=== PATIENT | male | born 1940 | race Caucasian/White ===

== ENCOUNTER → 2023-11-14 13:17 | Outpatient (REF) | payer MEDICARE, OTHER, SELFPAY ==
[2023-11-14 16:06] LABS: Blood Urea Nitrogen 24 mg/dl (9-20); Calcium 9.2 mg/dl (8.4-10.2); Carbon Dioxide 25 mmol/L (22-30); Chloride 103 mmol/L (98-107); Glucose 198 mg/dl (70-99); Potassium 4.9 mmol/L (3.5-5.1); Sodium 134 mmol/L (135-145); eGFR 55.19
== END ==
LOC: HWLAB 13:17
PROVIDERS: ATTENDING PHYSICIAN Nurse Practitioner Adult Health
DX: N18.31 Chronic kidney disease, stage 3a (principal)
CPT/HCPCS: 36415; 80048

== ENCOUNTER → 2024-05-22 10:33 | Outpatient (REF) | payer MEDICARE, OTHER, SELFPAY ==
[2024-05-22 12:33] LABS: % Basophils 0.7 % (0-2); % Eosinophils 2.4 % (0-6); % Immature Granulocytes 0.3 % (0-0.5); % Lymphocytes 29.2 % (20.5-51.1); % Monocytes 5.8 % (1.7-9.3); % Neutrophils 61.6 % (42.2-75.2); Absolute Basophils 0.1 10^3/uL (0-0.2); Absolute Eosinophils 0.2 10^3/uL (0-0.7); Absolute Lymphocytes 2.8 10^3/uL (1.2-3.4); Absolute Monocytes 0.6 10^3/uL (0.1-0.6); Hematocrit 41.7 % (39.0-52.0); Hemoglobin 14.4 g/dL (13.0-18.0); Mean Corp Hgb Conc. 34.5 g/dL (33.0-37.0); Mean Corpuscular Volume 95.6 fL (80.0-94.0); Mean Platelet Volume 10.1 fL (7.4-10.4); Nucleated Red Blood Cells % 0 % (-); Platelet Count 211 10^3/uL (130-400); Red Blood Cell Count 4.36 10^6/uL (4.70-6.10); Red Cell Dist. Width 13.2 % (11.5-14.5); White Blood Cell Count 9.7 10^3/uL (4.8-10.8)
[2024-05-22 13:11] LABS: ALT (SGPT) 25 U/L (0-50); AST (SGOT) 29 U/L (17-59); Albumin 4.6 g/dl (3.5-5.0); Alkaline Phosphatase 91 U/L (38-126); Blood Urea Nitrogen 25 mg/dl (9-20); Calcium 9.9 mg/dl (8.4-10.2); Carbon Dioxide 21 mmol/L (22-30); Chloride 102 mmol/L (98-107); Glucose 124 mg/dl (70-99); HDL Cholesterol 41 mg/dl; LDL Cholesterol, Calculated 81 mg/dl; Potassium 5.2 mmol/L (3.5-5.1); Sodium 137 mmol/L (135-145); Total Bilirubin 1.1 mg/dl (0.2-1.3); Total Cholesterol 149 mg/dl (50-199); Total Protein 7.4 g/dl (6.3-8.2); Triglyceride 135 mg/dl (10-149); Very Low Density Lipoprotein 27 mg/dl (0-30); eGFR 50.18
[2024-05-22 14:43] LABS: Glycohemoglobin (HgbA1c) 6.3 % (4.0-5.6)
[2024-05-22 15:16] LABS: Microalbumin, Random Urine 14.7 mg/dl (0.6-1.7)
== END ==
LOC: HWLAB 10:33
PROVIDERS: ATTENDING PHYSICIAN Internal Medicine Gastroenterology; FAMILY PHYSICIAN Nurse Practitioner Adult Health
DX: R80.9 Proteinuria, unspecified (principal); E11.9 Type 2 diabetes mellitus without complications; E78.00 Pure hypercholesterolemia, unspecified; T86.41 Liver transplant rejection; Z12.5 Encounter for screening for malignant neoplasm of prostate
CPT/HCPCS: 36415; 80053; 80061; 82043; 82570; 83036; 85025; G0103

== ENCOUNTER 2024-10-17 11:34 | Emergency (ER) | payer MEDICARE, OTHER, SELFPAY ==
[2024-10-17 11:39] VITALS: BP 183/88
[2024-10-17 12:01] LABS: % Basophils 0.5 % (0-2); % Eosinophils 1.8 % (0-6); % Immature Granulocytes 1.6 % (0-0.5); % Lymphocytes 33.5 % (20.5-51.1); % Monocytes 6.2 % (1.7-9.3); % Neutrophils 56.4 % (42.2-75.2); Absolute Eosinophils 0.1 10^3/uL (0-0.7); Absolute Immature Granulocytes 0.1 10^3/uL (0-0.05); Absolute Lymphocytes 1.8 10^3/uL (1.2-3.4); Absolute Monocytes 0.3 10^3/uL (0.1-0.6); Absolute Neutrophils 3.1 10^3/uL (1.4-6.5); Hematocrit 42.2 % (39.0-52.0); Hemoglobin 14.2 g/dL (13.0-18.0); Mean Corp Hgb Conc. 33.6 g/dL (33.0-37.0); Mean Corpuscular Hgb 32.6 pg (27.0-31.0); Mean Corpuscular Volume 96.8 fL (80.0-94.0); Mean Platelet Volume 9.5 fL (7.4-10.4); Nucleated Red Blood Cells % 0 % (-); Platelet Count 336 10^3/uL (130-400); Red Blood Cell Count 4.36 10^6/uL (4.70-6.10); Red Cell Dist. Width 13.2 % (11.5-14.5); White Blood Cell Count 5.5 10^3/uL (4.8-10.8)
[2024-10-17 12:12] LABS: ALT (SGPT) 17 U/L (0-50); AST (SGOT) 27 U/L (17-59); Albumin 4.4 g/dl (3.5-5.0); Alkaline Phosphatase 88 U/L (38-126); Blood Urea Nitrogen 22 mg/dl (9-20); Calcium 9.4 mg/dl (8.4-10.2); Carbon Dioxide 24 mmol/L (22-30); Chloride 102 mmol/L (98-107); Glucose 177 mg/dl (70-99); Potassium 5.1 mmol/L (3.5-5.1); Sodium 138 mmol/L (135-145); Total Bilirubin 1.1 mg/dl (0.2-1.3); Total Protein 7.6 g/dl (6.3-8.2); eGFR 50.18
[2024-10-17 12:41] LABS: Urine Albumin 2+ (Neg - Trace); Urine Bilirubin Negative (Negative); Urine Character Clear (Clear); Urine Color Yellow; Urine Glucose Negative (Negative); Urine Ketone Negative (Negative); Urine Leukocyte Negative (Negative); Urine Nitrite Negative (Negative); Urine Occult Blood Negative (Negative); Urine Urobilinogen Negative (Neg - 1+)
--- NOTE | 2024-10-17 13:37 | ED.GENMED ---
ED Provider Triage
<Jennifer Lowry PA-C - Last Filed: 10/17/24 13:39>
-
Patient seen by provider in Triage?: Seen in Triage
Attestation: A medical screening examination has been initiated by a qualified medical provider. Based on the assessment performed at this time, it has been determined that an emergent medical condition may exist and the patient has been informed
that further medical evaluation and possible additional diagnostic testing may be needed.
HPI: 84yoM here with R flank pain and urinary frequency x 1 week. Feels like he has to urinate constantly and is having dysuria. Believes he has a kidney stones, history of the same. No fevers, vomiting, testicular pain. Hx of liver transplant 20
years ago.
GENERAL: Alert , in no apparent distress
EYE: No visual abnormalities.
NECK: Trachea midline
ENT: No visible abnormalities.
LUNGS: No acute respiratory distress
NEUROLOGICAL: Alert and oriented
SKIN: Skin intact. No visible changes.
MUSCULOSKELETAL: Moving extremities normally
PSYCH: Normal and appropriate interaction.
This is a medical evaluation conducted in person to initiate diagnostic evaluation and provide initial therapeutics. Please see further documentation by the treating clinician.
CBC, CMP, UA ordered initially. No hematuria or signs of infection on urine dip, microscopic analysis pending. Will order bladder scan and CT abd/pelvis without contrast.
History of Present Illness
<Jennifer Lowry PA-C - Last Filed: 10/17/24 13:39>
General
Chief Complaint: Flank Pain
Time Seen by Provider: 10/17/24 13:46
<Juan A Mahajan PA-C - Last Filed: 10/17/24 16:05>
General
Source: patient
Exam Limitations: none
History of Present Illness
History of Present Illness:
84-year-old male presents for evaluation of difficulty urinating and lower abdominal discomfort. He has a history of kidney stones and this discomfort reminds him of his kidney stones in the past. No fevers or vomiting. He denies any blood in the
urine. He states over the past week he has been having a weak stream with urination. No other complaints at this time
Past History
<Jennifer Lowry PA-C - Last Filed: 10/17/24 13:39>
Past History
ED Past Medical History: CAD, HTN, Hypercholesterolemia, NIDDM, [place] and Other (vascular stents, BPH, diabetes mellitus, kidney stones, liver transplant, hepatitis)
ED Past Surgical History: Appendectomy and Other (Liver transplant)
Social History
Tobacco: Smoker
Alcohol: Occasional
Personal:
Living: with family
Phy Exam
<Juan A Mahajan PA-C - Last Filed: 10/17/24 16:05>
Physical Exam
Physical Exam:
General: Well-appearing male no acute respiratory distress
HEENT: Normocephalic atraumatic
Heart: Regular rate and rhythm no murmurs
Lungs: Clear no wheeze or rales.
Abd: soft, tender to suprapubic area
Ext: no cyanosis or edema
Course
<Jennifer Lowry PA-C - Last Filed: 10/17/24 13:39>
Orders/Labs/Results
Orders:
Orders
10/17/24 11:48
Complete Blood Count/With Diff Urgent
Comprehensive Metabolic Panel Urgent
Urinalysis Reflex To Culture Urgent
Date Specimen was Collected: 10/17/24
Time Specimen was Collected: 11:42
Urine Microscopic Reflex Cult Urgent
10/17/24 13:34
CT Abd/pel Without Iv Or Oral Urgent
Comment:
Reason For Exam: R flank pain, urinary frequency
10/17/24 13:37
Bladder Scan- Treatment ONCE
10/17/24 14:24
Lidocaine 2% [Lidocaine Uro-Jet 2%] 1 syringe .ROUTE .STK-MED ONE
Abnormal Lab Results
10/17/24
11:48
RBC 4.36 L 10^6/uL
(4.70-6.10)
MCV 96.8 H fL
(80.0-94.0)
MCH 32.6 H pg
(27.0-31.0)
Abs Immat Gran (auto) 0.1 H 10^3/uL
(0-0.05)
Immature Gran % 1.6 H %
(0-0.5)
BUN 22 H mg/dl
(9-20)
Creatinine 1.4 H mg/dL
(0.7-1.3)
Glucose 177 H mg/dl
(70-99)
Urine Albumin (Reflex) 2+ A
(Neg - Trace)
10/17/24 11:48
10/17/24 11:48
Vital Signs
Initial and Last Documented VS:
Initial Vital Signs
Temp Pulse Resp BP Pulse Ox
97.6 F 62 16 183/88 99
10/17/24 11:39 10/17/24 11:39 10/17/24 11:39 10/17/24 11:39 10/17/24 11:39
Last Documented Vital Signs
Temp Pulse Resp BP Pulse Ox
97.6 F 62 16 172/87 99
10/17/24 11:39 10/17/24 14:11 10/17/24 14:11 10/17/24 14:09 10/17/24 14:30
Afshinlt;Juan A Mahajan PA-C - Last Filed: 10/17/24 16:05>
Orders/Labs/Results
Orders:
Orders
10/17/24 11:48
Complete Blood Count/With Diff Urgent
Comprehensive Metabolic Panel Urgent
Urinalysis Reflex To Culture Urgent
Date Specimen was Collected: 10/17/24
Time Specimen was Collected: 11:42
Urine Microscopic Reflex Cult Urgent
10/17/24 13:34
CT Abd/pel Without Iv Or Oral Urgent
Comment:
Reason For Exam: R flank pain, urinary frequency
10/17/24 13:37
Bladder Scan- Treatment ONCE
10/17/24 14:24
Lidocaine 2% [Lidocaine Uro-Jet 2%] 1 syringe .ROUTE .STK-MED ONE
Abnormal Lab Results
10/17/24
11:48
RBC 4.36 L 10^6/uL
(4.70-6.10)
MCV 96.8 H fL
(80.0-94.0)
MCH 32.6 H pg
(27.0-31.0)
Abs Immat Gran (auto) 0.1 H 10^3/uL
(0-0.05)
Immature Gran % 1.6 H %
(0-0.5)
BUN 22 H mg/dl
(9-20)
Creatinine 1.4 H mg/dL
(0.7-1.3)
Glucose 177 H mg/dl
(70-99)
Urine Albumin (Reflex) 2+ A
(Neg - Trace)
10/17/24 11:48
10/17/24 11:48
Vital Signs
Initial and Last Documented VS:
Initial Vital Signs
Temp Pulse Resp BP Pulse Ox
97.6 F 62 16 183/88 99
10/17/24 11:39 10/17/24 11:39 10/17/24 11:39 10/17/24 11:39 10/17/24 11:39
Last Documented Vital Signs
Temp Pulse Resp BP Pulse Ox
97.6 F 62 16 172/87 99
10/17/24 11:39 10/17/24 14:11 10/17/24 14:11 10/17/24 14:09 10/17/24 14:30
<Juan A Mahaajn PA-C - Last Filed: 10/17/24 16:05>
MDM/Problems Addressed
Differential Diagnosis Includes:
Suprapubic discomfort flank discomfort and trouble urinating. Question UTI versus kidney stone versus urinary retention
Bladder scan at bedside shows 329 mL of urine in the bladder
CT demonstrates 6 mm stone within the dependent portion of the bladder but no active ureteral stone. This may suggest recently passed stone. There is an enlarged prostate noted on CT. Urinalysis negative for infection
Had discussion with patient regarding his urinary retention and having over 300 mL of urine in the bladder. Discussed in recommended catheter placement for urinary retention however he wishes not to go home with catheter. He declined this Rust
catheter but was okay for straight catheter. Straight cath was performed bladder was decompressed. He will be advised to follow-up with urology or return here if symptoms persist
<Juan A Mahajan PA-C - Last Filed: 10/17/24 16:05>
*Critical Care Note
Total Time (30-74mins, 75-104mins- exclusive of procedures): Not Applicable
ED Attending Note
<Jennifer Lowry PA-C - Last Filed: 10/17/24 13:39>
-
Portions of this chart may have been created with voice recognition software.� Occasional wrong word or��sound alike� substitutions may have occurred due to the inherent limitations of voice recognition software.
Discharge Plan
Departure
Patient Disposition: Home (Routine Discharge)
Date of Disposition: 10/17/24
Time of Disposition: 16:03
Patient with high blood pressure during this ER visit?: No
Discharge Problem:
Acute urinary retention
Instructions: Kidney Stones (DC)
Prescriptions:
No Action
atorvastatin 40 MG tablet
20 mg PO NOON
carvedilol [Coreg] 25 MG tablet
25 mg PO BID
aspirin 325 MG tablet
325 mg PO DAILY
lisinopril 2.5 MG tablet
2.5 mg PO DAILY
omega-3 fatty acids-fish oil [Fish Oil] 1,000 MG capsule
2 cap PO BID
metformin 500 MG tablet
500 mg PO BID
tacrolimus 1 MG capsule
1 mg PO BID
oxycodone 5 MG tablet
5 mg PO Q4HPRN PRN (Reason: flank pain) Qty: 12 0RF
ondansetron 4 MG tablet,disintegrating
4 mg PO TIDPRN PRN (Reason: nausea/vomiting) Qty: 9 0RF
Referrals:
Pool Chaidez MD [Active] -
Michelle Ojeda CRNP [Family Provider] -
Activity Restrictions/Additional Instructions:
Please return here for worsening symptoms. Follow-up with urology otherwise
Interventions
Interventions:
*Risk Screen - Suicide Last Done: 10/17/24 11:39
*Neglect/Abuse Screening Last Done: 10/17/24 11:39
ED- Fall Risk Assessment Last Done: 10/17/24 14:48
*ED COVID-19 Vaccine History Last Done: 10/17/24 11:39
OQ-Rpanzp-Udxrutnoia Assessment Last Done: 10/17/24 14:13
ED-Male Genitourinary Assessment Last Done: 10/17/24 14:13
Discharge Date and Time
Print Language: BAHRAINI
[2024-10-17 13:40] LABS: Urine Squamous Cell 0-2 /LPF (Few)
[2024-10-17 13:41] LABS: Urine Amorphous Seen; Urine Hyaline Cast 0-2 /LPF (0-2); Urine Red Blood Cell 0-2 /HPF (0-2); Urine White Cell 0-2 /HPF (0-5)
[2024-10-17 14:09] VITALS: BP 172/87
[2024-10-17 14:11] VITALS: BMI 24.8
--- NOTE | 2024-10-17 14:22 | EDRN ---
late entry--- post void bladder scan done in triage area for over 350cc
== END 2024-10-17 16:14 | disposition home or self-care (01) ==
LOC: EMR 11:34
PROVIDERS: EMERGENCY PHYSICIAN Emergency Medicine; FAMILY PHYSICIAN Nurse Practitioner Adult Health
DX: N40.1 Benign prostatic hyperplasia with lower urinary tract symptoms (principal); R33.8 Other retention of urine; I25.10 Atherosclerotic heart disease of native coronary artery without angina pectoris; I10 Essential (primary) hypertension; E78.00 Pure hypercholesterolemia, unspecified; E11.9 Type 2 diabetes mellitus without complications; F17.200 Nicotine dependence, unspecified, uncomplicated; Z87.442 Personal history of urinary calculi; Z90.49 Acquired absence of other specified parts of digestive tract; Z94.4 Liver transplant status
CPT/HCPCS: 99284; 74176; 80053; 81003; 81015; 85025

== ENCOUNTER 2024-10-18 08:25 | Emergency (ER) | payer MEDICARE, OTHER, SELFPAY ==
--- NOTE | 2024-10-18 08:47 | ED.GENMED ---
ED Provider Triage
-
Patient seen by provider in Triage?: Seen in Triage
Attestation: A medical screening examination has been initiated by a qualified medical provider. Based on the assessment performed at this time, it has been determined that an emergent medical condition may exist and the patient has been informed
that further medical evaluation and possible additional diagnostic testing may be needed.
HPI:
GENERAL: Alert , in no apparent distress
EYE: No visual abnormalities.
NECK: Trachea midline
ENT: No visible abnormalities.
LUNGS: No acute respiratory distress
NEUROLOGICAL: Alert and oriented
SKIN: Skin intact. No visible changes.
MUSCULOSKELETAL: Moving extremities normally
PSYCH: Normal and appropriate interaction.
This is a medical evaluation conducted in person to initiate diagnostic evaluation and provide initial therapeutics. Please see further documentation by the treating clinician.
History of Present Illness
General
Chief Complaint: Urinary Symptoms
Time Seen by Provider: 10/18/24 08:50
History of Present Illness
History of Present Illness:
84-year-old male presents the emergency department due to continued urinary retention. He was seen yesterday for this and was recommended to have a Rust catheter placed however he declined. Has not been able to void substantially since that time.
No fevers or chills
Past History
Past History
ED Past Medical History: CAD, HTN, Hypercholesterolemia, NIDDM, [place] and Other (vascular stents, BPH, diabetes mellitus, kidney stones, liver transplant, hepatitis)
ED Past Surgical History: Appendectomy and Other (Liver transplant)
Social History
Tobacco: Smoker
Alcohol: Occasional
Personal:
Living: with family
Review of Systems
Review of Systems
Allergies reviewed?: Yes
All Other Systems: ROS reviewed and negative except as documented in HPI and ROS
Phy Exam
Physical Exam
Physical Exam:
GEN: Well appearing, NAD, WDWN
HEENT: Oral mucosa moist, no scleral icterus
Cardiac: Regular rate
Lung: No respiratory distress, no tachypnea
MSK: No gross deformity or injuries
Skin: Good color, no pallor or jaundice, no rashes
Neuro: AO x3, moves all extremities freely
Psych: Calm, cooperative
Course
Orders/Labs/Results
Orders:
Orders
10/18/24 08:51
Rust Placement- Treatment ONCE
Reason for insertion: Acute Retention
10/18/24 09:21
Urine Culture Urgent
JOANA Source: Urine
Specimen Description:
Obtained by: Indwelling Catheter
Date Specimen was Collected: 10/18/24
Time Specimen was Collected: 09:18
Vital Signs
Initial and Last Documented VS:
Initial Vital Signs
Temp Pulse Resp BP Pulse Ox
98.0 F 67 16 131/73 98
10/18/24 08:51 10/18/24 08:51 10/18/24 08:51 10/18/24 08:51 10/18/24 08:51
Last Documented Vital Signs
Temp Pulse Resp BP Pulse Ox
98.0 F 67 16 131/73 98
10/18/24 08:51 10/18/24 08:51 10/18/24 08:51 10/18/24 08:51 10/18/24 08:51
MDM/Problems Addressed
MDM/Problems Addressed:
Rust placed, patient with improved symptoms. Will start him on Flomax and also empiric antibiotics particular given history of liver transplant on immunosuppressive's
*Critical Care Note
Total Time (30-74mins, 75-104mins- exclusive of procedures): Not Applicable
ED Attending Note
-
Portions of this chart may have been created with voice recognition software.� Occasional wrong word or��sound alike� substitutions may have occurred due to the inherent limitations of voice recognition software.
Discharge Plan
Departure
Patient Disposition: Home (Routine Discharge)
Date of Disposition: 10/18/24
Time of Disposition: 09:09
Patient with high blood pressure during this ER visit?: No
Discharge Problem:
Acute urinary retention
Instructions: Urinary retention
Prescriptions:
New
cefdinir 300 mg capsule
300 mg PO BID Qty: 14 0RF
tamsulosin [Flomax] 0.4 mg capsule
0.4 mg PO HS Qty: 14 0RF
No Action
atorvastatin 40 MG tablet
20 mg PO NOON
carvedilol [Coreg] 25 MG tablet
25 mg PO BID
aspirin 325 MG tablet
325 mg PO DAILY
lisinopril 2.5 MG tablet
2.5 mg PO DAILY
omega-3 fatty acids-fish oil [Fish Oil] 1,000 MG capsule
2 cap PO BID
metformin 500 MG tablet
500 mg PO BID
tacrolimus 1 MG capsule
1 mg PO BID
oxycodone 5 MG tablet
5 mg PO Q4HPRN PRN (Reason: flank pain) Qty: 12 0RF
ondansetron 4 MG tablet,disintegrating
4 mg PO TIDPRN PRN (Reason: nausea/vomiting) Qty: 9 0RF
Referrals:
Arie Blanco MD [Active] -
Michelle Ojeda CRNP [Family Provider] -
Interventions
Interventions:
ED- Fall Risk Assessment Last Done: 10/18/24 09:22
*Nursing Disposition Last Done: 10/18/24 09:45
ED-Male Genitourinary Assessment Last Done: 10/18/24 09:22
Discharge Date and Time
Discharge Date/Time: 10/18/24 09:45
Print Language: BELARUSIAN
[2024-10-18 08:51] VITALS: BP 131/73
== END 2024-10-18 09:45 | disposition home or self-care (01) ==
LOC: EMR 08:25
PROVIDERS: EMERGENCY PHYSICIAN Emergency Medicine; FAMILY PHYSICIAN Nurse Practitioner Adult Health
DX: N40.1 Benign prostatic hyperplasia with lower urinary tract symptoms (principal); R33.8 Other retention of urine; Z94.4 Liver transplant status; F17.200 Nicotine dependence, unspecified, uncomplicated
CPT/HCPCS: 99283; 51702; 87077; 87086

== ENCOUNTER → 2024-11-25 11:09 | Outpatient (REF) | payer MEDICARE, OTHER, SELFPAY ==
[2024-11-25 16:04] LABS: % Basophils 1.1 % (0-2); % Eosinophils 2.7 % (0-6); % Immature Granulocytes 0.3 % (0-0.5); % Lymphocytes 37.8 % (20.5-51.1); % Monocytes 5.7 % (1.7-9.3); % Neutrophils 52.4 % (42.2-75.2); Absolute Basophils 0.1 10^3/uL (0-0.2); Absolute Eosinophils 0.2 10^3/uL (0-0.7); Absolute Lymphocytes 2.5 10^3/uL (1.2-3.4); Absolute Monocytes 0.4 10^3/uL (0.1-0.6); Absolute Neutrophils 3.5 10^3/uL (1.4-6.5); Hematocrit 40.2 % (39.0-52.0); Hemoglobin 13.1 g/dL (13.0-18.0); Mean Corp Hgb Conc. 32.6 g/dL (33.0-37.0); Mean Corpuscular Hgb 33.2 pg (27.0-31.0); Mean Corpuscular Volume 101.8 fL (80.0-94.0); Mean Platelet Volume 10.5 fL (7.4-10.4); Nucleated Red Blood Cells % 0 % (-); Platelet Count 207 10^3/uL (130-400); Red Blood Cell Count 3.95 10^6/uL (4.70-6.10); Red Cell Dist. Width 14.4 % (11.5-14.5); White Blood Cell Count 6.6 10^3/uL (4.8-10.8)
[2024-11-25 16:11] LABS: ALT (SGPT) 12 U/L (0-50); AST (SGOT) 20 U/L (17-59); Albumin 4.3 g/dl (3.5-5.0); Alkaline Phosphatase 109 U/L (38-126); Blood Urea Nitrogen 22 mg/dl (9-20); Carbon Dioxide 23 mmol/L (22-30); Chloride 105 mmol/L (98-107); Glucose 128 mg/dl (70-99); HDL Cholesterol 45 mg/dl; LDL Cholesterol, Calculated 76 mg/dl; Potassium 5.2 mmol/L (3.5-5.1); Sodium 139 mmol/L (135-145); Total Bilirubin 0.8 mg/dl (0.2-1.3); Total Cholesterol 143 mg/dl (50-199); Total Protein 7.1 g/dl (6.3-8.2); Triglyceride 112 mg/dl (10-149); Very Low Density Lipoprotein 22 mg/dl (0-30); eGFR 50.18
[2024-11-25 16:23] LABS: Microalbumin, Random Urine 16.2 mg/dl (0.6-1.7); Microalbumin/creatinine Ratio 194.5 mg/g
[2024-11-26 10:51] LABS: Glycohemoglobin (HgbA1c) 6.1 % (4.0-5.6)
== END ==
LOC: HWLAB 11:09
PROVIDERS: ATTENDING PHYSICIAN Internal Medicine Gastroenterology; FAMILY PHYSICIAN Nurse Practitioner Adult Health
DX: E11.9 Type 2 diabetes mellitus without complications (principal); R80.9 Proteinuria, unspecified; I10 Essential (primary) hypertension; E78.00 Pure hypercholesterolemia, unspecified; Z94.4 Liver transplant status; T86.41 Liver transplant rejection
CPT/HCPCS: 36415; 80053; 80061; 82043; 82570; 83036; 85025

== ENCOUNTER → 2024-11-26 12:50 | Outpatient (REF) | payer MEDICARE, OTHER, SELFPAY | LOC: HWRCS 12:50 | PROVIDERS: ATTENDING PHYSICIAN Nurse Practitioner Gerontology; FAMILY PHYSICIAN Nurse Practitioner Adult Health | DX: I35.0 Nonrheumatic aortic (valve) stenosis (principal); I10 Essential (primary) hypertension | CPT/HCPCS: 93306 ==

== ENCOUNTER → 2025-02-21 12:20 | Outpatient (REF) | payer MEDICARE, OTHER, SELFPAY ==
[2025-02-21 15:41] LABS: ALT (SGPT) 13 U/L (0-50); AST (SGOT) 18 U/L (17-59); Albumin 4.2 g/dl (3.5-5.0); Alkaline Phosphatase 105 U/L (38-126); Blood Urea Nitrogen 25 mg/dl (9-20); Calcium 9.6 mg/dl (8.4-10.2); Carbon Dioxide 22 mmol/L (22-30); Chloride 111 mmol/L (98-107); Glucose 110 mg/dl (70-99); HDL Cholesterol 38 mg/dl; LDL Cholesterol, Calculated 74 mg/dl; Sodium 139 mmol/L (135-145); Total Bilirubin 0.6 mg/dl (0.2-1.3); Total Cholesterol 129 mg/dl (50-199); Total Protein 6.9 g/dl (6.3-8.2); Triglyceride 88 mg/dl (10-149); Very Low Density Lipoprotein 17 mg/dl (0-30); eGFR 50.18
[2025-02-21 15:58] LABS: Microalbumin, Random Urine 18.4 mg/dl (0.6-1.7); Microalbumin/creatinine Ratio 216.7 mg/g
[2025-02-22 10:27] LABS: Glycohemoglobin (HgbA1c) 6.5 % (4.0-5.6)
== END ==
LOC: HWLAB 12:20
PROVIDERS: ATTENDING PHYSICIAN Internal Medicine Gastroenterology; FAMILY PHYSICIAN Nurse Practitioner Adult Health
DX: E11.9 Type 2 diabetes mellitus without complications (principal); R80.0 Isolated proteinuria; E78.00 Pure hypercholesterolemia, unspecified; K76.0 Fatty (change of) liver, not elsewhere classified
CPT/HCPCS: 36415; 80053; 80061; 82043; 82570; 83036

== ENCOUNTER → 2025-02-25 08:39 | Outpatient (REF) | payer MEDICARE, OTHER, SELFPAY | LOC: HWRAD 08:39 | PROVIDERS: ATTENDING PHYSICIAN Internal Medicine Gastroenterology; FAMILY PHYSICIAN Nurse Practitioner Adult Health | DX: K76.0 Fatty (change of) liver, not elsewhere classified (principal) | CPT/HCPCS: 76700; 93975 ==